=== PATIENT | female | born 2000 | race Two or more races ===

== ENCOUNTER 2021-12-09 05:38 | Emergency (ER) | payer OTHER ==
[~2021-12-09] VITALS: Ht 162.6 cm; Wt 85.7 kg
[2021-12-09 06:47] VITALS: BP 119/75
[2021-12-09] MEDS ORDERED: AMOX-277 PO (06:52)
[2021-12-09] MEDS ORDERED: IBUP800T27 PO (06:52)
[2021-12-09] MEDS ORDERED: IBUPROFEN 800 MG TAB PO ONE (07:00)
== END 2021-12-09 06:57 | disposition home or self-care (01) ==
LOC: ER 05:38
DX: H66.93 Otitis media, unspecified, bilateral (principal)